=== PATIENT | male | born 1950 | race Caucasian/White ===

== ENCOUNTER 2017-01-23 10:29 | Emergency (ER) | payer MEDICARE, MEDICAID ==
[~2017-01-23] VITALS: Ht 185.4 cm; Wt 111.9 kg
[2017-01-23 10:34] VITALS: BP 133/75
[2017-01-23] MEDS ORDERED: AMLO10TA2 PO (11:29)
[2017-01-23] MEDS ORDERED: LOSA50TA6 PO (11:29)
[2017-01-23] MEDS ORDERED: GLIM4TAB2 PO (11:29)
[2017-01-23] MEDS ORDERED: METF500T4 PO (11:29)
== END 2017-01-23 12:20 | disposition home or self-care (01) ==
LOC: ED 11:45
DX: R09.89 Other specified symptoms and signs involving the circulatory and respiratory systems (principal)
CPT/HCPCS: 71010; 99283

== ENCOUNTER 2017-08-29 12:24 | Emergency (ER) | payer MEDICARE, MEDICAID ==
[~2017-08-29] VITALS: Ht 185.4 cm; Wt 109.5 kg
[~2017-08-29 12:24] MED LIST: AMLO10TA2 PO; GLIM4TAB2 PO; LOSA50TA6 PO; METF500T4 PO
[2017-08-29 12:27] VITALS: BP 133/77
[2017-08-29 14:17] LABS: HEMATOCRIT 46.9 % (39.2-51.8); HEMOGLOBIN 15.9 g/dL (13.7-18.0); WHITE BLOOD COUNT 10.3 x10^3/uL (3.4-10)
[2017-08-29 14:30] LABS: BLOOD UREA NITROGEN 17 mg/dL (7-18)
[2017-08-29 14:33] LABS: ASPARTATE AMINO TRANSFERASE 18 U/L (15-37)
[2017-08-29 14:39] LABS: PATH.CAST-FLAG NOT PRESENT; SPERM-FLAG NOT PRESENT; SRC-FLAG NOT PRESENT; XTAL-FLAG NOT PRESENT; YLC-FLAG NOT PRESENT
[2017-08-29 14:41] LABS: HIV 1&2 ANTIBODY SCREEN Nonreactive (Nonreactive); HIV-1 p24 ANTIGEN Nonreactive (Nonreactive)
== END 2017-08-29 15:39 | disposition home or self-care (01) ==
LOC: ED 15:10
DX: Z20.5 Contact with and (suspected) exposure to viral hepatitis (principal); S61.431A Puncture wound without foreign body of right hand, initial encounter; I10 Essential (primary) hypertension; E11.9 Type 2 diabetes mellitus without complications; X58.XXXA Exposure to other specified factors, initial encounter; Y93.89 Activity, other specified; Y92.89 Other specified places as the place of occurrence of the external cause; Y99.9 Unspecified external cause status
CPT/HCPCS: 36415; 80053; 81001; 85025; 86703; 86803; 87899; 99284; G0435

== ENCOUNTER → 2018-01-31 | Outpatient (CLI) | payer MEDICARE, MEDICAID | END | disposition home or self-care (01) | LOC: CFH 12:03 | PROVIDERS: ATTEND Licensed Practical Nurse | DX: Z87.891 Personal history of nicotine dependence (principal) | CPT/HCPCS: 93978 ==